=== PATIENT | female | born 1990 | race Caucasian/White ===

== ENCOUNTER 2017-08-29 23:40 | Emergency (ER) | payer MEDICAID ==
[~2017-08-29] VITALS: Ht 165.1 cm; Wt 122.5 kg
[~2017-08-29 23:40] MED LIST: BACO TOP; CLINDAMYCIN HC300 MG PO; COL100 PO; HIBICLENS118 ML TOP; NOR10T PO; TYLENOL W/CODEI1 TAB PO; [UNRECOGNIZED DRUG - CODE] PV
[2017-08-29 23:54] VITALS: Ht 165.1 cm; Wt 122.5 kg
[2017-08-30 02:13] LABS: UA SPECIFIC GRAVITY 1.015 (1.005-1.035); microscopic required? YES; urine erythrocyte 2+ (NEGATIVE)
[2017-08-30 02:18] LABS: AMPHETAMINE QUAL UR POSITIVE (See below)
[2017-08-30 05:12] VITALS: BP 111/70
== END 2017-08-30 05:12 | disposition home or self-care (01) ==
LOC: ED 23:40
PROVIDERS: Emergency Medicine
DX: N39.0 Urinary tract infection, site not specified (principal); M79.1 Myalgia
CPT/HCPCS: J0696; J1885; J3490; J7030